=== PATIENT | female | born 1960 | race Caucasian/White ===

== ENCOUNTER 2017-06-20 19:44 | Emergency (ER) | payer SELFPAY, BC | END 2017-06-20 21:21 | disposition left against medical advice (07) | LOC: E/R 19:44 | DX: Z53.21 Procedure and treatment not carried out due to patient leaving prior to being seen by health care provider (principal) ==

== ENCOUNTER 2017-06-21 14:21 | Emergency (ER) | payer BC ==
[2017-06-21] MEDS: KETOROLAC 30 MG INJ IM (17:43)
== END 2017-06-21 18:14 | disposition home or self-care (01) ==
LOC: FTE 14:21
DX: L08.9 Local infection of the skin and subcutaneous tissue, unspecified (principal); M79.7 Fibromyalgia; J45.909 Unspecified asthma, uncomplicated
CPT/HCPCS: 96372; 99284-25

== ENCOUNTER 2017-07-10 13:07 | Day surgery (SDC) | payer BC ==
[2017-07-10] MEDS ORDERED: LIDOCAINE 2% (SDV) 5 ML INJ (14:43)
[2017-07-10] MEDS ORDERED: PROPOFOL 60 ML (14:43)
[2017-07-10] MEDS ORDERED: morphine 2 MG INJ (16:12)
[2017-07-10] MEDS ORDERED: FENTAnyl 50 MCG/ML VIAL (16:30)
== END 2017-07-10 18:17 | disposition home or self-care (01) ==
LOC: GIL 13:07
DX: Z12.11 Encounter for screening for malignant neoplasm of colon (principal); K29.50 Unspecified chronic gastritis without bleeding; B96.81 Helicobacter pylori [H. pylori] as the cause of diseases classified elsewhere; M19.90 Unspecified osteoarthritis, unspecified site; E66.9 Obesity, unspecified; Z68.32 Body mass index [BMI] 32.0-32.9, adult; I10 Essential (primary) hypertension
CPT/HCPCS: 43239; 88309; 88312

== ENCOUNTER 2018-07-31 20:36 | Emergency (ER) | payer BC ==
[2018-07-31] MEDS: DEXAMETHASONE (1 MG/ML PO SYG) PO (22:09)
[2018-07-31] MEDS: KETOROLAC 60 MG INJ IM (22:10)
[2018-07-31] MEDS: morphine 4 MG/ML VIAL IM (22:10)
== END 2018-07-31 22:51 | disposition home or self-care (01) ==
LOC: FTE 20:36
DX: M79.644 Pain in right finger(s) (principal); F11.90 Opioid use, unspecified, uncomplicated; M79.645 Pain in left finger(s); Z87.39 Personal history of other diseases of the musculoskeletal system and connective tissue
CPT/HCPCS: 96372; 99284-25